=== PATIENT | female | born 1980 | race Two or more races ===

== ENCOUNTER 2018-12-22 14:51 | Emergency (ER) | payer SELFPAY ==
[~2018-12-22] VITALS: Ht 162.6 cm; Wt 90.7 kg
[2018-12-22 14:51] VITALS: BP 105/70
--- NOTE | 2018-12-22 15:21 | NUR ---
PATIENT IS CALLED IN THE WAITING ROOM, PATIENT IS NOT AROUND.
--- NOTE | 2018-12-22 15:30 | NUR ---
Called No response
--- NOTE | 2018-12-22 16:00 | NUR ---
Multiple Calls No response-Eloped
== END 2018-12-22 16:57 | disposition home or self-care (01) ==
LOC: ER 14:55
DX: Z53.21 Procedure and treatment not carried out due to patient leaving prior to being seen by health care provider (principal); R10.31 Right lower quadrant pain